=== PATIENT | female | born 1995 | race Caucasian/White ===

== ENCOUNTER 2017-05-14 22:16 | Emergency (ER) | payer BC ==
[2017-05-14 22:38] VITALS: BP 141/78
--- NOTE | 2017-05-14 23:41 | EDM.PDOC ---
ED HPI GENERAL MEDICAL PROBLEM - General Chief Complaint: Respiratory Problem Stated Complaint: SOB Time Seen by Provider: 05/14/17 22:44 Source of Information: Reports: Patient History Limitations: Reports: No Limitations - History of Present Illness INITIAL COMMENTS - FREE TEXT/NARRATIVE: This young woman comes in complaining of shortness of breath and wheezing. She was seen on May 03 in clinic for this problem. She already has an albuterol nebulizer that she was using but said it really didn't seem to help much. On May 03 it was felt this was probably a viral upper respiratory infection. She was started on Singulair 10 mg daily and advised to take Claritin. Pulmonary function test were done. She doesn't know the results of those. She complains of continued shortness of breath and also mentions some pain in the sternal area when she breathes deeply. If she just takes shallow breaths there is no pain. She denies any fever. Cough is not productive. She said the nebulizer helps briefly. Thoracic Pain Score (Numeric/FACES): 7 - Related Data Allergies Allergy/AdvReac Type Severity Reaction Status Date / Time No Known Allergies Allergy Verified 05/14/17 22:31 Home Meds: Home Meds Albuterol [IJD: Albuterol] 2.5 mg NEB ASDIRECTED PRN 05/14/17 [History] Albuterol [Ventolin HFA] 2 puff IH Q4H PRN 05/14/17 [History] Montelukast [Singulair] 10 mg PO DAILY 05/14/17 [History] Multivitamin [Multivitamins] 1 each PO DAILY 05/14/17 [History] Norgestimate-Ethinyl Estradiol [Ortho Tri-Cyclen 28 Tablet] 1 each PO DAILY [History] Past Medical History HEENT History: Reports: Impaired Vision Respiratory History: Reports: Asthma, Pneumonia, Recurrent Musculoskeletal History: Reports: Arthritis, Fracture Psychiatric History: Reports: Anxiety, Depression - Past Surgical History HEENT Surgical History: Reports: Tonsillectomy Female Surgical History: Reports: Other (See Below) Other Female Surgeries/Procedures: lap exploratory surgery looking for endometosis Musculoskeletal Surgical History: Reports: Other (See Below) Other Musculoskeletal Surgeries/Procedures:: bunyan surgeries Social & Family History - Tobacco Use Smoking Status *Q: Never Smoker - Caffeine Use Caffeine Use: Reports: None - Recreational Drug Use Recreational Drug Use: No ED ROS GENERAL - Review of Systems Review Of Systems: ROS reveals no pertinent complaints other than HPI. ED EXAM, GENERAL - Physical Exam Exam: See Below Exam Limited By: No Limitations General Appearance: Alert, WD/WN, No Apparent Distress Eye Exam: Bilateral Eye: Normal Inspection Throat/Mouth: Normal Oropharynx, No Airway Compromise Respiratory/Chest: No Respiratory Distress, Lungs Clear, Normal Breath Sounds, Other (Chest wall is nontender. She does have a pectus excavatum.) Cardiovascular: Regular Rate, Rhythm, No Murmur Course - Vital Signs Last Recorded V/S: Last Vital Signs Temp 37.3 C 05/14/17 22:39 Pulse 103 H 05/14/17 22:39 Resp 20 05/14/17 22:39 BP 141/78 H 05/14/17 22:39 Pulse Ox 97 05/14/17 22:39 - Re-Assessments/Exams Free Text/Narrative Re-Assessment/Exam: 05/14/17 23:41 The patient did not require any medications while she was here. We did review the pulmonary function tests on the patient's smartphone. She did have decreased FVC and FEV1 which both increased post bronchodilator. I did not see the physician interpretation of the PFTs. I'll plan to put this lady on oral corticosteroid. This should help with her breathing as well as the chest wall pain. Lab and x-ray were not indicated at this visit. Departure - Departure Time of Disposition: 23:42 Disposition: Home, Self-Care 01 Condition: Fair Clinical Impression: Asthmatic bronchitis - Discharge Information Forms: ED Department Discharge Additional Instructions: Take the Medrol or methyl prednisolone. This is an anti-inflammatory medication that's often used in asthma and will also help with any inflammation in your chest wall. You may also take some ibuprofen and Tylenol. Follow package instructions. The ibuprofen you may take up to 400 mg 3 times daily. That's the lowest prescription dose. Plan to follow-up with your doctor soon and you can discuss the pulmonary function tests. Continue taking the Singulair and Claritin. Return to the ER at any time if needed.
== END 2017-05-15 00:03 | disposition home or self-care (01) ==
LOC: JP.ED 22:16
DX: R06.02 Shortness of breath (principal); H54.7 Unspecified visual loss; J45.909 Unspecified asthma, uncomplicated; Z87.01 Personal history of pneumonia (recurrent); M19.90 Unspecified osteoarthritis, unspecified site; F32.9 Major depressive disorder, single episode, unspecified; F41.9 Anxiety disorder, unspecified; Z90.89 Acquired absence of other organs; Z79.899 Other long term (current) drug therapy
CPT/HCPCS: 99285